=== PATIENT | male | born 1995 | race Caucasian/White ===

== ENCOUNTER 2018-05-06 20:03 | Emergency (ER) | payer OTHER ==
--- NOTE | 2018-05-06 20:24 | EDPHY ---
H & P Time Seen by Provider: 05/06/18 20:15 HPI/ROS: CHIEF COMPLAINT: Left elbow injury HISTORY OF PRESENT ILLNESS: Fell today just prior to arrival landing on outstretched left arm, presents with left elbow pain. Unable to extend it fully. Denies hand wrist or shoulder injury. No weakness or numbness in the left hand. REVIEW OF SYSTEMS: No skin laceration, no other injuries. PAST MEDICAL HISTORY: Negative General Appearance: Alert and conversant, cooperative. Normal left clavicle and shoulder, normal left humerus. Tenderness at the elbow joint with limited extension. Normal left forearm wrist and hand with no snuffbox tenderness. Normal left radial pulse normal motor and sensory and radial ulnar and median nerve distributions. Moderately anxious, somewhat uncomfortable. Emergency Department course/MDM: Patient took Tylenol prior to arrival, declined additional pain medication, x- ray ordered. I do think that his elevated heart rate is because of his injury. He does have pain but wants to try and treated with Tylenol and ice initially. 2035: X-ray reviewed with the patient shows radial head fracture, sling and outpatient orthopedic follow-up. Smoking Status: Never smoked Constitutional: Initial Vital Signs Temperature (C) 37.1 C 05/06/18 20:04 Heart Rate 127 H 05/06/18 20:04 Respiratory Rate 20 05/06/18 20:04 Blood Pressure 130/73 H 05/06/18 20:04 O2 Sat (%) 97 05/06/18 20:04 O2 Delivery Mode Room Air Allergies/Adverse Reactions: No Known Allergies Allergy (Unverified 05/06/18 20:08) Home Medications: Medication Instructions Recorded NK [No Known Home Meds] 05/06/18 MDM/Departure - MDM Medications Given: Discontinued Medications Hydrocodone Bitart/Acetaminophen (Remer 5/325mg Prepack#6) [facility] Stop: 05/06/18 20:41 Last Admin: 05/06/18 20:50 Dose: 1 btl - Depart Disposition: Home, Routine, Self-Care Clinical Impression: Radial head fracture, closed Qualifiers: Encounter type: sequela Fracture alignment: nondisplaced Laterality: left Qualified Code(s): S52.125S - Nondisplaced fracture of head of left radius, sequela Condition: Good Instructions: Hydrocodone/Acetaminophen (By mouth), Elbow Fracture (ED) Referrals: ALFIE HAY [Other] - As per Instructions Reymundo Nava MD [Medical Doctor] - 5-7 days, call for appt.
[2018-05-06] MEDS ORDERED: HYDROCOD/APAP 5/325 PREPACK#6 BTL TAKEHOME ONE (20:40)
[2018-05-06 20:57] VITALS: BP 126/72
== END 2018-05-06 21:06 | disposition home or self-care (01) ==
DX: S52.125A Nondisplaced fracture of head of left radius, initial encounter for closed fracture (principal); W19.XXXA Unspecified fall, initial encounter; Y93.61 Activity, american tackle football; Y99.8 Other external cause status
CPT/HCPCS: A4565